=== PATIENT | male | born 1970 | race African-American/Black ===

== ENCOUNTER 2022-02-23 12:08 | Emergency (ER) | payer BC, SELFPAY ==
[2022-02-23 12:14] VITALS: BP 170/79; PULSE 56; RESP 14; TEMP 36.3; O2SAT 100
--- NOTE | 2022-02-23 12:39 | PC.NURSE ---
EDP at bedside to assess pt.
--- NOTE | 2022-02-23 12:45 | ED.EYEPROB ---
HPI - Eye Problem General Chief complaint: Eye Problems Stated complaint: pink eye to both eyes Time Seen by Provider: 02/23/22 12:17 History of Present Illness HPI Narrative: 52-year-old male presents to the emergency room with bilateral eye swelling, redness and purulent discharge. Patient states his symptoms started on Saturday. Patient denies any visual changes or visual loss. Denies fever. Related Data Allergies Allergy/AdvReac Type Severity Reaction Status Date / Time No Known Allergies Allergy Verified 02/23/22 13:06 Review of Systems Review of Systems: CONSTITUTIONAL: Denies fever, chills, or sweats. EYES: Reports redness and discharge. ENT: Denies rhinorrhea, congestion, sore throat, or otalgia. CARDIOVASCULAR: Denies chest pain, palpitations, or edema. RESPIRATORY: Denies cough or dyspnea. GASTROINTESTINAL: Denies abdominal pain, nausea, vomiting, or diarrhea. GENITOURINARY: Denies dysuria or hematuria. SKIN: Denies rash or itching. MUSCULOSKELETAL: Denies back pain, joint pain, or myalgia. NEUROLOGIC: Denies headache, numbness, dizziness, or weakness. PSYCHIATRIC: Denies anxiety or depression. Exam Narrative: GENERAL: Well-appearing, well-nourished, no physical limitations, and in no acute distress. HEAD: Normocephalic, atraumatic. EYES: Conjunctivae injected bilaterally, purulent drainage noted, PERRLA and EOMI. ENT: External nose normal, Nares clear, no rhinorrhea or epistaxis. Mucous membranes moist. Oropharynx without tonsillar hypertrophy exudate or other lesions. External ears normal, bilateral TMs normal bilaterally NECK: Supple. No meningeal signs. No adenopathy or masses. No carotid bruits or JVD CHEST: Clear to auscultation. No respiratory distress. No wheezes rales or rhonchi. No tenderness. HEART: Regular rate and rhythm. No murmur heard. Normal peripheral pulses. ABDOMEN: Soft, nontender, nondistended, normal active bowel sounds. : Normal external male/female exam. BACK: No CVA tenderness; No cervical/thoracic/lumbar tenderness, step-offs, bony abnormality; FROM EXTREMITIES: Normal range of motion. No edema. No clubbing or cyanosis SKIN: Warm, dry, no rash. No noted wounds NEURO: No focal deficits. Alert and oriented x3. MAEW. CN's II-XI intact bilaterally, normal gait PSYCH: Cooperative. Normal mood and affect. Course Vital Signs Vital signs: Vital Signs Temperature 36.3 C L 02/23/22 12:14 Pulse Rate 56 L 02/23/22 12:14 Respiratory Rate 14 02/23/22 12:14 Blood Pressure 170/79 H 02/23/22 12:14 Pulse Oximetry 100 02/23/22 12:14 Oxygen Delivery Room Air 02/23/22 12:14 Temperature 36.3 C L 02/23/22 12:14 Pulse Rate 56 L 02/23/22 12:14 Respiratory Rate 14 02/23/22 12:14 Blood Pressure 170/79 H 02/23/22 12:14 Pulse Oximetry 100 02/23/22 12:14 Oxygen Delivery Room Air 02/23/22 12:14 Discharge Plan Discharge Clinical Impression: Bacterial conjunctivitis Patient Disposition: Home, Self-Care Condition: Stable Instructions: Antibiotic Form Prescriptions: New polymyxin B sulf-trimethoprim [Polytrim] 10,000 unit- 1 mg/mL drops 1 drp EACH EYE Q3H 7 Days Qty: 10 0RF Rx Instructions: while awake; do not exceed 6 doses in 24 hours Follow-up/Referrals: PHYSICIAN NOT ON STAFF,NONSTAFF [Non-Staff] - Time of Disposition: 12:43
== END 2022-02-23 13:18 | disposition home or self-care (01) ==
LOC: ANHED 12:46
PROVIDERS: Emergency Provider Nurse Practitioner Family
DX: H10.89 Other conjunctivitis (principal)
CPT/HCPCS: 99283